=== PATIENT | female | born 1965 | race Caucasian/White ===

== ENCOUNTER 2019-01-24 16:25 | Emergency (ER) | payer BC ==
[~2019-01-24] VITALS: Ht 160 cm; Wt 98.0 kg
[~2019-01-24 16:25] MED LIST: AMLO-147 PO; INSU100I12 SQ; LANT3I SC; LISI40TA3 PO
[2019-01-24 16:29] VITALS: Ht 160 cm; Wt 98.0 kg
[2019-01-24] MEDS ORDERED: SOD CHLORIDE 0.9% 500 ML IV STA (17:36)
[2019-01-24] MEDS ORDERED: ACETAMINOPHEN 500 MG TAB PO STA (17:47)
[2019-01-24 18:51] VITALS: BP 187/132; PULSE 68; RESP 20
== END 2019-01-24 18:51 | disposition home or self-care (01) ==
LOC: E/R 16:25
DX: I10 Essential (primary) hypertension (principal); I16.0 Hypertensive urgency; Z79.4 Long term (current) use of insulin
CPT/HCPCS: 36415; 71045; 80048; 81025; 83880; 84484; 85025; 93005; 99285; J7040